=== PATIENT | female | born 1960 | race Caucasian/White ===

== ENCOUNTER → 2016-10-14 16:57 | Outpatient (CLI) | payer MEDICARE | END | disposition home or self-care (01) | LOC: D.MAMMO 14:45 | DX: Z12.31 Encounter for screening mammogram for malignant neoplasm of breast (principal) ==

== ENCOUNTER → 2016-10-30 14:27 | Outpatient (CLI) | payer MEDICARE | END | disposition home or self-care (01) | LOC: D.MRI 14:27 | DX: M75.02 Adhesive capsulitis of left shoulder (principal) ==